=== PATIENT | female | born 1990 | race Caucasian/White ===

== ENCOUNTER 2024-07-20 13:30 | Emergency (ER) | payer BC ==
[2024-07-20 14:01] LABS: Basophils % (A) 0 %; Eosinophils # (A) 0.1 k/uL (0-0.7); Eosinophils % (A) 1 %; HCT 39.1 % (34.0-46.0); HGB 12.5 gm/dL (11.4-16.0); Lymphocytes % (A) 30 %; MCH 26.5 pg (25.0-35.0); MCHC 31.9 g/dL (31.0-37.0); MCV 83.1 fL (80.0-100.0); Mean Platelet Volume 7.7; Monocytes # (A) 0.3 k/uL (0-1.0); Monocytes % (A) 5 %; Neutrophils % (A) 61 %; Platelet Count 296 k/uL (150-450); RBC 4.71 m/uL (3.80-5.40); RDW 14.4 % (11.5-15.5); WBC 6.6 k/uL (3.8-10.6)
[2024-07-20 14:14] LABS: INR 0.9 (<1.2); Partial Thromboplastin Time 25.6 sec (22.0-30.0); Prothrombin Time 10.3 sec (10.0-12.5)
[2024-07-20 14:29] LABS: ALT 19 U/L (4-34); AST 37 U/L (14-36); African American GFR (CKD) >90 (>60 ml/min/1.73 sqM); Albumin 4.3 g/dL (3.5-5.0); Alkaline Phosphatase 87 U/L (38-126); Anion Gap 9 mmol/L; Blood Urea Nitrogen 10 mg/dL (7-17); Carbon Dioxide 22 mmol/L (22-30); Chloride 108 mmol/L (98-107); Glucose 115 mg/dL (74-99); Magnesium 1.7 mg/dL (1.6-2.3); Non-African American GFR(CKD) >90 (>60 ml/min/1.73 sqM); Potassium 3.8 mmol/L (3.5-5.1); Sodium 139 mmol/L (137-145); Total Bilirubin 0.4 mg/dL (0.2-1.3); Total Protein 7.7 g/dL (6.3-8.2)
--- NOTE | 2024-07-20 14:29 | ED ---
Chest Pain HPI - General Chief Complaint: Chest Pain Stated Complaint: SOB,Rib pain Time Seen by Provider: 07/20/24 14:27 Source: patient, RN notes reviewed Mode of arrival: ambulatory Limitations: no limitations - History of Present Illness Initial Comments: 33-year-old female presenting to the ER with chief complaint of chest pain 1 hour ago. Patient states she was at work when suddenly she began to feel a sharp lower chest pain that she described as "feels like my ribs were being ripped out". Endorses shortness of breath associated with this pain. She reports symptoms have improved but is still experiencing a more dull pain. Reports pain is worse with deep inspiration. States she has had this pain before, but never this severe. Denies blood thinners. Denies leg swelling, recent surgeries, travel, history of clots. - Related Data Home Medications Medication Instructions Recorded Confirmed Tirzepatide [Zepbound] 5 mg SQ SA 07/20/24 07/20/24 metroNIDAZOLE 0.75% CREAM 1 applic TOPICAL DAILY 07/20/24 07/20/24 [Metrocream 0.75%] Allergies Allergy/AdvReac Type Severity Reaction Status Date / Time No Known Allergies Allergy Verified 07/20/24 16:43 Review of Systems ROS Statement: Those systems with pertinent positive or pertinent negative responses have been documented in the HPI. ROS Other: All systems not noted in ROS Statement are negative. EKG Findings - EKG Results: EKG: interpreted by [facility] (EKG reveals normal sinus rhythm with no ST changes. Ventricular rate 91 bpm, MD interval 138, QRS duration 82, QT/QTc 355/404) Past Medical History Past Medical History: No Reported History Past Surgical History: Section Smoking Status: Current every day smoker General Exam - General Exam Comments Initial Comments: Visual Physical Exam Vital signs reviewed General: Well-appearing, nontoxic, no acute distress. Head: Normocephalic, atraumatic Eyes: PERRLA, EOMI ENT: Airway patent Chest: Nonlabored breathing Skin: No visual rash, normal skin tone Neuro: Alert and oriented 3 Musculoskeletal: No gross abnormalities Limitations: no limitations General appearance: alert, in no apparent distress Head exam: Present: atraumatic, normocephalic, normal inspection Eye exam: Present: normal appearance, PERRL, EOMI. Absent: scleral icterus, conjunctival injection, periorbital swelling ENT exam: Present: normal exam, mucous membranes moist Neck exam: Present: normal inspection. Absent: tenderness, meningismus, lymphadenopathy Respiratory exam: Present: normal lung sounds bilaterally. Absent: respiratory distress, wheezes, rales, rhonchi, stridor Cardiovascular Exam: Present: regular rate, normal rhythm, normal heart sounds. Absent: systolic murmur, diastolic murmur, rubs, gallop, clicks GI/Abdominal exam: Present: soft, normal bowel sounds. Absent: distended, tenderness, guarding, rebound, rigid Neurological exam: Present: alert, oriented X3 Psychiatric exam: Present: normal affect, normal mood Skin exam: Present: warm, dry, intact, normal color. Absent: rash Course Vital Signs 07/20/24 07/20/24 13:40 18:21 Temperature 98.2 F Pulse Rate 87 90 Respiratory 16 18 Rate Blood Pressure 145/93 117/80 O2 Sat by Pulse 99 98 Oximetry Chest Pain MDM - MDM I completed the quick note portion of this chart signed Kamala Gale PA-C Was pt. sent in by a medical professional or institution ([facility], [employer], urgent care, hospital, or [place] health care facility...) When possible be specific @ -No Did you speak to anyone other than the patient for history (EMS, parent, family, police, friend...)? What history was obtained from this source @ -No Did you review nursing and triage notes (agree or disagree)? Why? @ -I reviewed and agree with nursing and triage notes Were old charts reviewed (outside hosp., previous admission, EMS record, old EKG, old radiological studies, urgent care reports/EKG's, [place] health care facility records)? Report findings @ -No old charts were reviewed Differential Diagnosis (chest pain, altered mental status, abdominal pain women, abdominal pain men, vaginal bleeding, weakness, fever, dyspnea, syncope, headache, dizziness, GI bleed, back pain, seizure, CVA, palpatations, mental health, musculoskeletal)? @ -Differential Chest Pain: Stable Angina, Unstable Angina, STEMI, NSTEMI Aortic Dissection, Pneumothorax, Musculoskeletal, Esophageal Spasm GERD, Cholecystitis, Pancreatitis, Zoster, this is not meant to be an all-inclusive list. EKG interpreted by me (3pts min.). @ -As above X-rays interpreted by me (1pt min.). @ -X-ray reveals no acute process CT interpreted by me (1pt min.). @ -CT angio chest reveals no pulmonary embolism, scattered sub-6 mm pulmonary nodules likely benign, small hiatal hernia U/S interpreted by me (1pt. min.). @ -None done What testing was considered but not performed or refused? (CT, X-rays, U/S, labs)? Why? @ -None What meds were considered but not given or refused? Why? @ -None Did you discuss the management of the patient with other professionals (professionals i.e. , PA, [employer], lab, RT, psych nurse, case management social worker, music director, teacher, lead security officer, adult protective caseworker)? Give summary @ -No Was smoking cessation discussed for >3mins.? @ -No Was critical care preformed (if so, how long)? @ -No Were there social determinants of health that impacted care today? How? (Homelessness, low income, unemployed, alcoholism, drug addiction, transportation, low edu. Level, literacy, decrease access to med. care, prison, rehab)? @ -No Was there de-escalation of care discussed even if they declined (Discuss DNR or withdrawal of care, Hospice)? DNR status @ -No What co-morbidities impacted this encounter? (DM, HTN, Smoking, COPD, CAD, Cancer, CVA, ARF, Chemo, Hep., AIDS, mental health diagnosis, sleep apnea, morbid obesity)? @ -None Was patient admitted / discharged? Hospital course, mention meds given and route, prescriptions, significant lab abnormalities, going to OR and other pertinent info. @ -Discharged. This is a 33-year-old female presenting for chest pain 1 hour with shortness of breath. Patient has no cardiac or pulmonary risk factors. Vital signs are within acceptable limits. Physical examination is unremarkable. Patient was provided with Toradol for supportive care. EKG reveals normal sinus rhythm with no ST changes. Lab work including CBC, CMP, troponin, lipase, coags, D-dimer elevated for mildly elevated D-dimer at 0.64. CT angio chest then obtained which was negative for PE. Urinalysis remarkable for blood due to patient is on menstrual cycle. Discussed results with patient. Upon reevaluation, patient reports symptoms have improved. Discussed that there does not appear to be emergent etiology causing symptoms. Advise close follow-up with PCP in 1 to 3 days. Patient is agreeable to plan. Case was discussed with my ED attending Dr. Contreras. Patient discharged in stable condition. Undiagnosed new problem with uncertain prognosis? @ -No Drug Therapy requiring intensive monitoring for toxicity (Heparin, Nitro, Insulin, Cardizem)? @ -No Were any procedures done? @ -No Diagnosis/symptom? @ -Chest pain Acute, or Chronic, or Acute on Chronic? @ -Acute Uncomplicated (without systemic symptoms) or Complicated (systemic symptoms)? @ -Uncomplicated Side effects of treatment? @ -No Exacerbation, Progression, or Severe Exacerbation? @ -No Poses a threat to life or bodily function? How? (Chest pain, [place], VT, pneumonia, PE, COPD, DKA, ARF, appy, cholecystitis, CVA, Diverticulitis, Homicidal, Suicidal, threat to staff... and all critical care pts) @ -Not at this time Disposition Clinical Impression: Chest pain Disposition: HOME SELF-CARE Condition: Stable Instructions (If sedation given, give patient instructions): Chest Pain (ED) Additional Instructions: Follow-up with PCP within the week. Please return to the Emergency Department if symptoms worsen or any other concerns. Is patient prescribed a controlled substance at d/c from ED?: No Referrals: [facility] [NON-STAFF] - 1-[address] [facility] [NON-STAFF] - 1-2 days None,Stated [REFERRING] - 1-2 days Forms: Area PCPs Time of Disposition: 17:53
--- NOTE | 2024-07-20 14:37 | XR ---
EXAMINATION TYPE: XR chest 2V DATE OF EXAM: 07/20/2024 2:15 PM COMPARISON: None. CLINICAL INDICATION: Female, 33 years old with history of Chest Pain, TECHNIQUE: XR chest 2V view(s) obtained. FINDINGS: The heart size is normal. The pulmonary vasculature is normal. The lungs are clear. IMPRESSION: 1. No acute pulmonary process. [facility], , 07/20/2024 2:35 PM
[2024-07-20 15:38] VITALS: TEMP 98.2
[2024-07-20] MEDS: KETOROLAC 15 MG/ML 1 ML VIAL IVP STA (16:06)
--- NOTE | 2024-07-20 17:29 | CT ---
EXAMINATION TYPE: CT angio chest DATE OF EXAM: 07/20/2024 5:13 PM COMPARISON: Chest radiograph from same day. CLINICAL INDICATION: Female, 33 years old with history of shortness of breath, chest pain, elevated D -dimer; SOB, CP, elevated d-dimer TECHNIQUE/CONTRAST: CTA scan of the thorax is performed with IV Contrast, patient injected with 370 mL of Isovue 370, MIP images are created and reviewed these are created on a separate workstation.. CT DLP: 494.6 mGycm, Automated exposure control for dose reduction was used. FINDINGS: Lungs/Pleura: No evidence of focal consolidation, pleural effusion or pneumothorax. 5 mm right lower lobe pulmonary nodule. 4 mm pulmonary nodule middle lobe Airway: Large airways are patent. Heart: Heart is within normal limits for size. Vasculature: There is no evidence for a filling defect within the pulmonary vasculature to suggest [place] pulmonary embolism. The pulmonary artery is of normal size. Mediastinum: No gross evidence of adenopathy. Small hiatal hernia. Musculoskeletal: No acute osseous abnormalities Soft Tissues/lymph nodes: Unremarkable. Lower neck: No significant findings. Upper Abdomen: No significant findings. IMPRESSION: 1. No evidence of pulmonary embolism. 2. Scattered sub-6 m pulmonary nodules likely benign given patient's age. 3. Small hiatal hernia. [facility], , 07/20/2024 5:27 PM
[2024-07-20 17:37] LABS: Appearance,Urine Clear (Clear); Bilirubin,Urine Negative (Negative); Blood,Urine Large (Negative); Color,Urine Yellow; Glucose,Urine (UA) Negative (Negative); Ketones,Urine Negative (Negative); Leukocyte Esterase,Urine Negative (Negative); Mucus,Urine Few /hpf; Nitrite,Urine Negative (Negative); PH, Urine 5.5 (5.0-8.0); Protein,Urine Trace (Negative); RBC,Urine 44 /hpf (0-5); Specific Gravity,Urine 1.028 (1.001-1.035); Squamous Epithelial Cell,Urine 1 /hpf (0-4); Urobilinogen,Urine <2.0 mg/dL (<2.0); WBC,Urine 2 /hpf (0-5)
[2024-07-20 18:22] VITALS: BP 117/80; PULSE 90; RESP 18
== END 2024-07-20 18:22 | disposition home or self-care (01) ==
LOC: EC 13:30
DX: R07.89 Other chest pain (principal); K44.9 Diaphragmatic hernia without obstruction or gangrene; F17.200 Nicotine dependence, unspecified, uncomplicated
CPT/HCPCS: 36415; 93005; 85379; 80053; 83690; 83735; 84484; 85025; 85610; 85730; 81001; 71046; 71275; 99285; 96374; J1885